=== PATIENT | female | born 1960 | race Caucasian/White ===

== ENCOUNTER 2018-03-17 12:36 | Inpatient (IN) | payer SELFPAY ==
[~2018-03-17] VITALS: Ht 165.1 cm; Wt 116.1 kg
[2018-03-17] VITALS (20 sets, daily range): BP systolic 81–127; BP diastolic 46–86
[~2018-03-17 12:36] MED LIST: ETOMIDATE 40 MG/ 20ML VIAL IV ONE; MIDAZOLAM HCL 2 MG/2 ML VIAL ONE; SUCCINYLCHOLINE CHLORIDE 20 MG/ML 10ML VIAL ONE; VECURONIUM BROMIDE FOR INJ 20 MG VIAL ONE; WATER STERILE 10 ML VIAL ONE
[2018-03-17] MEDS ORDERED: SODIUM CHLORIDE 0.9% 1000ML 1,000 ML IV STA (12:39)
[2018-03-17] MEDS ORDERED: ASPIRIN 81 MG CHEW TAB PO ONE (12:45)
[2018-03-17 12:48] LABS: BASOPHILS # (AUTO) 0.2 (0.0-0.1); EOSINOPHILS % 11.9 % (0.0-6.0); HEMATOCRIT 49.5 % (34.2-44.1); HEMOGLOBIN 15.9 g/dL (12.0-16.0); LYMPHOCYTES # (AUTO) 5.9 (1.0-3.2); LYMPHOCYTES % 35.7 % (18.0-39.1); MEAN CORPUSCULAR HEMOGLOBIN 29.8 pg (28-32); MEAN CORPUSCULAR HGB CONC 32.1 g/dL (31-35); MEAN CORPUSCULAR VOLUME 92.7 fL (81-99); MONOCYTES # (AUTO) 1.1 (0.2-0.8); MONOCYTES % 6.6 % (4.4-11.3); NEUTROPHILS # (AUTO) 7.4 (2.1-6.9); NEUTROPHILS % 44.4 % (38.7-80.0); PLATELET COUNT 438 x10e3/uL (140-360); RED BLOOD COUNT 5.34 x10e6/uL (3.6-5.1); RED CELL DISTRIBUTION WIDTH 13.4 % (11.7-14.4)
[2018-03-17 12:57] LABS: INR 1.11; PROTHROMBIN TIME 13.5 seconds (11.9-14.5)
[2018-03-17 12:58] LABS: PARTIAL THROMBOPLASTIN TIME 22.7 seconds (23.8-35.5)
[2018-03-17] MEDS ORDERED: LEVOTHYROXINE75 MCG PO (12:58)
[2018-03-17] MEDS ORDERED: BENZONATATE200 MG (12:58)
[2018-03-17] MEDS ORDERED: DOXYCYCLINE HY100 MG PO (12:58)
[2018-03-17 13:06] LABS: ABG HCO3 31 mmol/L (23-28); ABG PCO2 93 mmHg (41-51); ABG PH 7.13 (7.31-7.41); ABG PO2 368 mmHg (80-105)
[2018-03-17 13:07] LABS: EOSINOPHILS % (MANUAL) 10 % (0-7); LYMPHOCYTES % (MANUAL) 38 % (19-48); MONOCYTES % (MANUAL) 4 % (3.4-9.0); NEUTROPHILS % (MANUAL) 44 % (40-74)
[2018-03-17 13:08] LABS: ALBUMIN 4.6 g/dL (3.5-5.0); ALBUMIN/GLOBULIN RATIO 1.1 (0.8-2.0); ANION GAP 20.1 mmol/L (8-16); CALCIUM 10.1 mg/dL (8.4-10.2); CREATININE, SERUM 1.25 mg/dL (0.57-1.11); MAGNESIUM 2.6 MG/DL (1.3-2.1); PLATELET ESTIMATE ADEQUATE; PLATELET MORPHOLOGY COMMENT NORMAL; POTASSIUM 4.1 mmol/L (3.5-5.1); RBC MORPHOLOGY COMMENT NORMAL
[2018-03-17 13:14] LABS: BILIRUBIN,URINE NEGATIVE (NEGATIVE); CLARITY,URINE HAZY (CLEAR); COLOR,URINE YELLOW (YELLOW); KETONES,URINE NEGATIVE (NEGATIVE); LEUKOCYTE ESTERASE ,URINE NEGATIVE (NEGATIVE); NITRITE,URINE NEGATIVE (NEGATIVE); PROTEIN,URINE DIPSTICK NEGATIVE (NEGATIVE); URINE UROBILINOGEN 0.2 mg/dL (0.2 - 1)
[2018-03-17 13:15] LABS: BACTERIA,URINE FEW /HPF; EPITHELIAL CELLS,URINE FEW /LPF; WBC,URINE (MAN) 0-5 /HPF (0-5)
[2018-03-17] MEDS: MIDAZOLAM HCL 25 MG in SODIUM CHLORIDE 0.9% 50ML 45 ML IV PRN ×2 (13:20→18:00)
[2018-03-17] MEDS: FENTANYL CITRATE INJ 2,000 MCG in SODIUM CHLORIDE 0.9% 250ML 210 ML IV PRN ×3 (13:25→23:59)
[2018-03-17] MEDS ORDERED: SODIUM CHLORIDE 0.9% 1000ML 1,000 ML ONE (13:26)
[2018-03-17 13:27] LABS: CREATINE KINASE MB 3.7 ng/mL (0-5.0); THYROID STIMULATING HORMONE 0.83 uIU/mL (0.350-4.940)
[2018-03-17] MEDS ORDERED: VANCOMYCIN 1GM/NS 250 ML 500 ML IV ONE (13:30)
--- NOTE | 2018-03-17 13:46 | Diagnostic Imaging Report ---
EXAMINATION: CHEST SINGLE (PORTABLE) INDICATION: \S\ERMD ORDER \[id number] \S\[id number] \S\Y COMPARISON: None FINDINGS: AP view Motion artifact partly limit evaluation. TUBES and LINES: Endotracheal tube tip projects approximately 2.8 cm above the pita. NG/OG tube tip extends below the diaphragm out of the field of view. LUNGS: Lungs are well inflated. Lungs are clear. There is no evidence of pneumonia or pulmonary edema. PLEURA: No pleural effusion or pneumothorax. HEART AND MEDIASTINUM: The cardiomediastinal silhouette is unremarkable. BONES AND SOFT TISSUES: No acute osseous lesion. Soft tissues are unremarkable. UPPER ABDOMEN: No free air under the diaphragm. IMPRESSION: No acute thoracic abnormality. Signed by: DR. Rahul Patricia MD on 03/17/2018 1:43 PM
[2018-03-17] MEDS ORDERED: VANCOMYCIN HCL 1GM/NS 250 ML BAG IV SCH (14:00)
[2018-03-17] MEDS ORDERED: AZITHROMYCIN 500MG/SOD CHL 0.9% 250ML BAG IV SCH (14:00)
[2018-03-17] MEDS: SODIUM CHLORIDE 0.9% 1000ML 1,000 ML IV SCH ×2 (14:30→21:40)
[2018-03-17] MEDS: AZITHROMYCIN 500MG/NS 250 ML 250 ML IV SCH (14:35)
[2018-03-17] MEDS: CEFEPIME HCL 1 GM VIAL IV SCH (14:40)
[2018-03-17] MEDS ORDERED: MELOXICAM15 MG (15:04)
[2018-03-17] MEDS ORDERED: GABAPENTIN300 MG (15:04)
[2018-03-17] MEDS ORDERED: SIMVASTATIN20 MG (15:04)
[2018-03-17] MEDS ORDERED: AMITRIPTYLINE H25 MG PO ×2 (15:04→15:06)
[2018-03-17] MEDS ORDERED: HYDROXYZINE HCL25 MG PO (15:06)
[2018-03-17] MEDS ORDERED: VANCOMYCIN 1GM/NS 250 ML 250 ML IV SCH (15:30)
[2018-03-17] MEDS ORDERED: ALBUTEROL/IPRATROPIUM 3 ML NEB ONE (16:00)
[2018-03-17] MEDS ORDERED: ALBUTEROL/IPRATROPIUM 3 ML NEB NEB ONE (16:00)
[2018-03-17] MEDS ORDERED: PROPOFOL IV EMULSION 10MG/ML 100 ML ONE (16:16)
[2018-03-17] MEDS ORDERED: HEPARIN SOD (PORCINE) 5,000 UNIT/ML VIAL ONE (16:22)
[2018-03-17] MEDS ORDERED: HEPARIN 25,000U/0.45% NS 250ML 1,400 UNIT in SODIUM CHLORIDE 0.9% 250ML 0 ML IV SCH (16:30)
[2018-03-17] MEDS ORDERED: ROCURONIUM BROMIDE 2 ML ONE (16:36)
[2018-03-17] MEDS: LEVOFLOXACIN 750MG/D5W 150ML 150 ML IV SCH (17:00)
[2018-03-17] MEDS ORDERED: DEXAMETHASONE SOD PHOS 10 MG/1 ML VIAL ONE (17:05)
--- NOTE | 2018-03-17 17:20 | Diagnostic Imaging Report ---
EXAMINATION: CHEST SINGLE (PORTABLE) INDICATION: \[id number] \S\[id number] COMPARISON: 03/17/2018 at 1301 FINDINGS: AP view TUBES and LINES: None. LUNGS: Lungs are well inflated. Lungs are clear. There is no evidence of pneumonia or pulmonary edema. PLEURA: No pleural effusion or pneumothorax. HEART AND MEDIASTINUM: The cardiomediastinal silhouette is unremarkable. BONES AND SOFT TISSUES: No acute osseous lesion. Soft tissues are unremarkable. UPPER ABDOMEN: No free air under the diaphragm. IMPRESSION: No acute thoracic abnormality. Signed by: DR. Rahul Patricia MD on 03/17/2018 5:17 PM
[2018-03-17] MEDS ORDERED: SUCCINYLCHOLINE CHLORIDE 20 MG/ML 10ML VIAL ONE (17:26)
[2018-03-17] MEDS ORDERED: ETOMIDATE 2 MG/ML 10 ML INJ IV STA (18:24)
[2018-03-17] MEDS: PROPOFOL IV EMULSION 10MG/ML 100 ML IV PRN (18:30)
[2018-03-17] MEDS ORDERED: CISATRACURIUM BESYLATE 100 MG in SODIUM CHLORIDE 0.9% 100 ML 100 ML IV PRN (18:45)
[2018-03-17 18:59] LABS: ABG HCO3 29 mmol/L (23-28); ABG PCO2 129 mmHg (41-51); ABG PH 6.95 (7.31-7.41); ABG PO2 166 mmHg (80-105)
[2018-03-17] MEDS ORDERED: ALBUTEROL SULF 0.083% NEB SOLN 3 ML NEB NEB ONE ×2 (19:00→20:00)
[2018-03-17 19:17] LABS: ABG PH 7.14 (7.31-7.41)
[2018-03-17 19:18] LABS: ABG HCO3 27 mmol/L (23-28); ABG PCO2 80 mmHg (41-51); ABG PO2 366 mmHg (80-105)
[2018-03-17] MEDS ORDERED: SUCCINYLCHOLINE 200 MG/10 ML SYR IV ONE (19:30)
[2018-03-17] MEDS ORDERED: MIDAZOLAM HCL 2 MG/2 ML VIAL IV ONE (19:30)
--- NOTE | 2018-03-17 19:33 | Operative Report ---
DATE OF PROCEDURE: PREPROCEDURE DIAGNOSIS: Acute hypoxic respiratory failure. POSTOPERATIVE DIAGNOSIS: Acute hypoxic respiratory failure. PROCEDURE PERFORMED: Endotracheal intubation. ANESTHESIA: Patient received paralytics and Versed. PROCEDURE DETAIL: Glidoscope was advanced through the oral cavity. Patient was intubated with 7.0-tube on first attempt. Color change was seen with end tidal CO2 and position was confirmed with chest x-ray. COMPLICATIONS: None. Job#: [id number] [id number] MTDD
--- NOTE | 2018-03-17 19:38 | Operative Report ---
DATE OF PROCEDURE: PREPROCEDURE DIAGNOSIS: Hypotension. POSTPROCEDURE DIAGNOSIS: Hypotension. PROCEDURE PERFORMED: Central line insertion. PROCEDURE DETAIL: After standard sterile measures, realtime ultrasound was used to locate the left internal jugular vein. Left internal jugular vein central line was placed with Seldinger technique. Good blood flow was seen in all 3 ports. Postprocedure chest x-ray is pending. Job#: [id number] CQ
--- NOTE | 2018-03-17 19:39 | Diagnostic Imaging Report ---
EXAMINATION: CHEST XRAY LINE PLACEMENT INDICATION: \S\l ij \[id number] \S\[id number] COMPARISON: Chest radiograph 03/17/2018 at 1648 hrs. FINDINGS: AP view TUBES and LINES: Endotracheal tube tip in the right mainstem bronchus. Left IJ central venous catheter with tip projecting over the mid SVC. LUNGS: Right upper lobe atelectasis. Lungs otherwise clear. PLEURA: No pleural effusion or pneumothorax. HEART AND MEDIASTINUM: The cardiomediastinal silhouette is unremarkable. BONES AND SOFT TISSUES: No acute osseous lesion. Soft tissues are unremarkable. UPPER ABDOMEN: No free air under the diaphragm. IMPRESSION: ET tube tip in the right mainstem bronchus with right upper lobe collapse. Findings discussed with Ms. Georgia Gan RN on 03/17/2018 at 1930 hrs. Signed by: DR. Rahul Patricia MD on 03/17/2018 7:35 PM
--- NOTE | 2018-03-17 19:43 | Operative Report ---
DATE OF PROCEDURE: PREPROCEDURE DIAGNOSES 1. Difficult airway. 2. Hypoxia. POSTOPERATIVE DIAGNOSES 1. Difficult airway. 2. Hypoxia. PROCEDURE PERFORMED: Bronchoscopy with eye piece scope DETAILS OF PROCEDURE: Patient was sedated, paralyzed. Bronchoscope with eyepiece was advanced through the ET tube. Pita was identified. I was unable to advance the scope to segmental level. Patient's tube placement was confirmed. Pita was identified. Thick green mucus was seen coming from the right side. unable to comment on segmental anatomy and presence of mass- as was unable to advance the scope beyond pita because of poor suction and visualization with eyepiece fibre optic scope. COMPLICATIONS: None. Job#: [id number] [id number] MTDValarie
--- NOTE | 2018-03-17 20:39 | Diagnostic Imaging Report ---
EXAM: CT Chest WITH contrast 03/17/2018 4:29 PM INDICATION: Pulmonary embolism, respiratory failure COMPARISON: Chest x-ray on 03/17/2018 at 1853 hours and 1301 hours TECHNIQUE: Chest was scanned utilizing a multidetector helical scanner from the lung apex through the level of the adrenal glands without administration of IV contrast. Coronal and sagittal reformations were obtained. Routine protocol was performed. IV CONTRAST: 85 mL of Isovue 370 RADIATION DOSE: Total DLP: 638.9 mGy*cm Estimated effective dose: (DLP x 0.014 x size factor) mSv COMPLICATIONS: None FINDINGS: LINES/ TUBES: Endotracheal tube is now visualized with tip just 1 cm above the pita. Has been retracted from the right mainstem bronchus. LUNGS AND AIRWAYS: Persistent collapse of the right upper and right middle lobes. Airways are otherwise normal. PLEURA: The pleural spaces are clear. HEART AND MEDIASTINUM: The thyroid gland is normal. No mediastinal, hilar or axillary lymphadenopathy. The heart is normal in size.. There is no pericardial effusion. UPPER ABDOMEN: Limited non-contrast views of the upper abdomen show no abnormality within the visualized liver, spleen, pancreas, or kidneys. The adrenal glands are normal. BONES: The visualized bony thorax is within normal limits. SOFT TISSUES: Unremarkable. IMPRESSION: 1. No evidence of pulmonary embolism. 2. Collapse of the right upper and right middle lobes. 3. Repositioning of endotracheal tube now in better location 1 cm above the pita Signed by: Dr. Magdi Simpson M.D. on 03/17/2018 8:36 PM
--- NOTE | 2018-03-17 21:15 | Consultation ---
DATE OF CONSULTATION: PULMONARY/CRITICAL CARE CONSULTATION REASON FOR CONSULTATION: Shortness of breath, respiratory failure, ICU management. HPI: Ms. Bergman is a 57-year-old female. I was called by the emergency room physician that patient has a difficult airway and unable to ventilate. She is saturating 60%. I am unable to take any history from the patient as she is intubated, sedated, and paralyzed. ER chart says the patient is unable to give any history. There is unknown history of smoking. REVIEW OF SYSTEMS: Unable to elicit any as patient is sedated, intubated, paralyzed, and there is no other admissions here at [facility]. PAST MEDICAL HISTORY: Unknown. MEDICATIONS: She is on levothyroxine, meloxicam, simvastatin, doxycycline. FAMILY AND SOCIAL HISTORY: Also is unknown. PHYSICAL EXAM VITAL SIGNS: Temperature 98.4. Blood pressure 100/63. Respiratory rate of 18. O2 sat 100% right now. She is on FiO2 of 100%, PEEP of 10, tidal volume of 400, and she is on AC. She has been a difficult airway. I intubated her with 7-tube with GlideScope. HEENT: Head atraumatic, normocephalic. NECK: Supple. CHEST: Wheezing and crackles bilaterally. HEART: S1, S2 audible. ABDOMEN: Soft, nontender. EXTREMITIES: No pedal edema. NEUROLOGIC: She is sedated, intubated, paralyzed right now. LABS: White count of 16,000, hemoglobin 15.9, platelets 438,000. Chemistry, sodium 142, potassium 4.1, chloride 102, BUN 12, creatinine 1.25. CHEST X-RAY: I reviewed the images. It is not showing any focal infiltrate. ET tube appears to be in good position. ASSESSMENT AND PLAN: Ms. Bergman is a 57-year-old female. She presented with [id number] hypercapnic and hypoxic respiratory failure. Her blood gas shows pCO2 of 7.93 and pH of 7.13. CURRENT PROBLEMS 1. Acute hypoxic and hypercapnic respiratory failure. 2. Difficult airway. 3. RUL pneumonia/collapse PLAN 1. Continue the patient on vent support. Keep the patient sedated. If the ventilation has an issue, we need to paralyze the patient. 2. Nebulizer treatment. 3. IV Solu-Medrol. Patient has been started on heparin by the ER physician for possibility of PE. CTA is pending. Will follow the results. 4. IV antibiotics Job#: [id number] CQ MTDD
[2018-03-17] MEDS: VANCOMYCIN 1GM/NS 250 ML 250 ML IV SCH (21:40)
[2018-03-17] MEDS: METHYLPREDNISOLONE SOD SUCC 40 MG/ML VIAL IV SCH (21:40)
[2018-03-17] MEDS: ALBUTEROL SULF 0.083% NEB SOLN 3 ML NEB NEB SCH (22:41)
[2018-03-17] MEDS: PIPER-TAZ 3.375 GM 50 ML IV SCH (23:48)
[2018-03-17] MEDS ORDERED: IOPAMIDOL 370 MG/ML 200 ML INFUS..BTL INJ ONE (23:49)
[2018-03-17] MEDS ORDERED: SODIUM CHLORIDE 0.9% 50ML 50 ML ONE (23:49)
[2018-03-18] VITALS (62 sets, daily range): BP systolic 78–150; BP diastolic 48–103
[2018-03-18] MEDS: LEVOFLOXACIN 750MG/D5W 150ML 150 ML IV SCH (00:20)
[2018-03-18] MEDS: CEFEPIME HCL 1 GM VIAL IV SCH (00:45)
[2018-03-18] MEDS: ALBUTEROL SULF 0.083% NEB SOLN 3 ML NEB NEB SCH ×6 (02:19→23:10)
[2018-03-18] MEDS: METHYLPREDNISOLONE SOD SUCC 40 MG/ML VIAL IV SCH ×3 (03:28→20:03)
[2018-03-18 04:12] LABS: ABG HCO3 25 mmol/L (23-28); ABG PCO2 44 mmHg (41-51); ABG PH 7.36 (7.31-7.41); ABG PO2 212 mmHg (80-105)
[2018-03-18 05:00] LABS: ANION GAP 13.3 mmol/L (8-16); BLOOD UREA NITROGEN 13 mg/dL (7-26); BUN/CREATININE RATIO 15 (6-25); CALCIUM 8.6 mg/dL (8.4-10.2); CARBON DIOXIDE 22 mmol/L (22-29); CHLORIDE 112 mmol/L (98-107); CREATININE, SERUM 0.85 mg/dL (0.57-1.11); EST GLOMERULAR FILTRATION RATE > 60 ML/MIN (60-); GLUCOSE 128 mg/dL (74-118); POTASSIUM 4.3 mmol/L (3.5-5.1); SODIUM 143 mmol/L (136-145)
[2018-03-18] MEDS: PIPER-TAZ 3.375 GM 50 ML IV SCH ×3 (05:47→22:30)
[2018-03-18] MEDS: SODIUM CHLORIDE 0.9% 1000ML 1,000 ML IV SCH ×2 (05:47→14:59)
[2018-03-18 06:36] LABS: BASOPHILS % 0.1 % (0.0-1.0); HEMATOCRIT 36.6 % (34.2-44.1); HEMOGLOBIN 11.9 g/dL (12.0-16.0); LYMPHOCYTES # (AUTO) 0.9 (1.0-3.2); LYMPHOCYTES % 8.4 % (18.0-39.1); MEAN CORPUSCULAR HEMOGLOBIN 30.2 pg (28-32); MEAN CORPUSCULAR HGB CONC 32.5 g/dL (31-35); MEAN CORPUSCULAR VOLUME 92.9 fL (81-99); MONOCYTES # (AUTO) 0.4 (0.2-0.8); MONOCYTES % 4.1 % (4.4-11.3); NEUTROPHILS # (AUTO) 8.9 (2.1-6.9); PLATELET COUNT 263 x10e3/uL (140-360); RED BLOOD COUNT 3.94 x10e6/uL (3.6-5.1)
[2018-03-18] MEDS ORDERED: LEVOFLOXACIN 750MG/DEXTROSE PREMIX BAG 150ML IV SCH (09:00)
[2018-03-18] MEDS: VANCOMYCIN 1GM/NS 250 ML 250 ML IV SCH ×2 (09:42→20:03)
--- NOTE | 2018-03-18 10:35 | Diagnostic Imaging Report ---
EXAM: XR CHEST 1 VIEW DATE: 03/18/2018 5:00 AM INDICATION: Pneumonia COMPARISON: 03/17/2018 FINDINGS: Lines and Tubes: ET tube tip above pita. Left IJ catheter tip likely overlying left brachycephalic artery. Heart and Mediastinum: No acute cardiomediastinal findings. Lungs and Pleura: Elevation right hemidiaphragm and minimal opacities lung bases. Ill-defined opacity right apex. Bones and Soft Tissues: No acute findings. IMPRESSION: 1. Lines and tubes satisfactory position. 2. Minimal basilar atelectasis versus pneumonia. 3. Ill-defined opacity right apex may be projectional/artifactual. Follow-up recommended. Signed by: Dr. Donavan Cruz MD on 03/18/2018 10:31 AM
[2018-03-18] MEDS: MIDAZOLAM HCL 25 MG in SODIUM CHLORIDE 0.9% 50ML 45 ML IV PRN (12:00)
[2018-03-18 14:55] LABS: ABG HCO3 37 mmol/L (23-28); ABG PCO2 54 mmHg (41-51); ABG PO2 58 mmHg (80-105)
[2018-03-18] MEDS: AZITHROMYCIN 500MG/NS 250 ML 250 ML IV SCH (14:59)
[2018-03-18] MEDS: ENOXAPARIN SOD INJ 40 MG/0.4 ML SYR SC SCH (19:17)
[2018-03-19] VITALS (81 sets, daily range): BP systolic 89–147; BP diastolic 51–129
[2018-03-19] MEDS: MIDAZOLAM HCL 25 MG in SODIUM CHLORIDE 0.9% 50ML 45 ML IV PRN ×4 (01:04→20:00)
[2018-03-19] MEDS: METHYLPREDNISOLONE SOD SUCC 40 MG/ML VIAL IV SCH ×3 (02:57→18:46)
[2018-03-19] MEDS: FENTANYL CITRATE INJ 2,000 MCG in SODIUM CHLORIDE 0.9% 250ML 210 ML IV PRN ×2 (02:57→16:50)
[2018-03-19] MEDS: ALBUTEROL SULF 0.083% NEB SOLN 3 ML NEB NEB SCH ×6 (03:01→22:55)
[2018-03-19 04:36] LABS: BASOPHILS % 0.1 % (0.0-1.0); HEMOGLOBIN 11.2 g/dL (12.0-16.0); LYMPHOCYTES # (AUTO) 1.1 (1.0-3.2); LYMPHOCYTES % 7.6 % (18.0-39.1); MEAN CORPUSCULAR HEMOGLOBIN 30.3 pg (28-32); MEAN CORPUSCULAR HGB CONC 32.9 g/dL (31-35); MEAN CORPUSCULAR VOLUME 91.9 fL (81-99); MONOCYTES # (AUTO) 0.7 (0.2-0.8); MONOCYTES % 4.7 % (4.4-11.3); NEUTROPHILS % 86.6 % (38.7-80.0); PLATELET COUNT 200 x10e3/uL (140-360); RED CELL DISTRIBUTION WIDTH 14.2 % (11.7-14.4)
[2018-03-19] MEDS: PROPOFOL IV EMULSION 10MG/ML 100 ML IV PRN ×2 (04:40→19:20)
[2018-03-19] MEDS: SODIUM CHLORIDE 0.9% 1000ML 1,000 ML IV SCH (04:42)
[2018-03-19 04:59] LABS: ALANINE AMINOTRANSFERASE 22 IU/L (0-55); ALBUMIN 2.9 g/dL (3.5-5.0); ALKALINE PHOSPHATASE 58 IU/L (40-150); ANION GAP 9.7 mmol/L (8-16); BLOOD UREA NITROGEN 19 mg/dL (7-26); BUN/CREATININE RATIO 24 (6-25); CALCIUM 8.7 mg/dL (8.4-10.2); CARBON DIOXIDE 25 mmol/L (22-29); CHLORIDE 110 mmol/L (98-107); CREATININE, SERUM 0.78 mg/dL (0.57-1.11); EST GLOMERULAR FILTRATION RATE > 60 ML/MIN (60-); GLUCOSE 154 mg/dL (74-118); POTASSIUM 3.7 mmol/L (3.5-5.1); SODIUM 141 mmol/L (136-145)
[2018-03-19 05:20] LABS: THYROID STIMULATING HORMONE 0.163 uIU/mL (0.350-4.940)
[2018-03-19] MEDS: PIPER-TAZ 3.375 GM 50 ML IV SCH ×2 (05:51→15:23)
[2018-03-19] MEDS: VANCOMYCIN 1GM/NS 250 ML 250 ML IV SCH (10:31)
[2018-03-19] MEDS ORDERED: VANCOMYCIN 1GM/NS 250 ML 250 ML IV ONE (13:30)
[2018-03-19 14:50] LABS: ABG HCO3 26 mmol/L (23-28); ABG PCO2 39 mmHg (41-51); ABG PH 7.44 (7.31-7.41); ABG PO2 62 mmHg (80-105)
[2018-03-19] MEDS: AZITHROMYCIN 500MG/NS 250 ML 250 ML IV SCH (16:09)
[2018-03-19] MEDS: ENOXAPARIN SOD INJ 40 MG/0.4 ML SYR SC SCH (18:46)
[2018-03-19] MEDS ORDERED: VANCOMYCIN HCL 1.25 GM in SODIUM CHLORIDE 0.9% 250ML 300 ML IV SCH (21:00)
[2018-03-19] MEDS: VANCOMYCIN HCL 1.25 GM in SODIUM CHLORIDE 0.9% 250ML 250 ML IV SCH (23:00)
[2018-03-20] VITALS (77 sets, daily range): BP systolic 112–140; BP diastolic 70–94
[2018-03-20] MEDS: MIDAZOLAM HCL 25 MG in SODIUM CHLORIDE 0.9% 50ML 45 ML IV PRN ×7 (00:50→21:00)
[2018-03-20] MEDS: FENTANYL CITRATE INJ 2,000 MCG in SODIUM CHLORIDE 0.9% 250ML 210 ML IV PRN ×3 (03:00→22:45)
[2018-03-20] MEDS ORDERED: SODIUM CHLORIDE 0.9% 500ML 500 ML ONE (03:09)
[2018-03-20] MEDS: ALBUTEROL SULF 0.083% NEB SOLN 3 ML NEB NEB SCH ×6 (03:15→22:50)
[2018-03-20] MEDS: METHYLPREDNISOLONE SOD SUCC 40 MG/ML VIAL IV SCH ×3 (04:00→23:00)
[2018-03-20] MEDS: PIPER-TAZ 3.375 GM 50 ML IV SCH ×4 (05:30→23:25)
[2018-03-20 05:31] LABS: BASOPHILS % 0.1 % (0.0-1.0); HEMATOCRIT 35.4 % (34.2-44.1); HEMOGLOBIN 11.6 g/dL (12.0-16.0); LYMPHOCYTES # (AUTO) 1.4 (1.0-3.2); LYMPHOCYTES % 10.8 % (18.0-39.1); MEAN CORPUSCULAR HEMOGLOBIN 29.7 pg (28-32); MEAN CORPUSCULAR HGB CONC 32.8 g/dL (31-35); MEAN CORPUSCULAR VOLUME 90.8 fL (81-99); MONOCYTES # (AUTO) 0.6 (0.2-0.8); MONOCYTES % 4.5 % (4.4-11.3); NEUTROPHILS % 83.4 % (38.7-80.0); PLATELET COUNT 236 x10e3/uL (140-360); RED CELL DISTRIBUTION WIDTH 14.1 % (11.7-14.4)
[2018-03-20 05:40] LABS: ANION GAP 10.7 mmol/L (8-16); BLOOD UREA NITROGEN 23 mg/dL (7-26); BUN/CREATININE RATIO 33 (6-25); CALCIUM 8.5 mg/dL (8.4-10.2); CARBON DIOXIDE 26 mmol/L (22-29); CHLORIDE 110 mmol/L (98-107); CREATININE, SERUM 0.69 mg/dL (0.57-1.11); EST GLOMERULAR FILTRATION RATE > 60 ML/MIN (60-); GLUCOSE 154 mg/dL (74-118); POTASSIUM 3.7 mmol/L (3.5-5.1); SODIUM 143 mmol/L (136-145)
[2018-03-20] MEDS: PROPOFOL IV EMULSION 10MG/ML 100 ML IV PRN (06:00)
--- NOTE | 2018-03-20 06:22 | Diagnostic Imaging Report ---
CHEST SINGLE (PORTABLE), 03/20/2018 6:00 AM Technique: CHEST SINGLE (PORTABLE) Comparison: 03/18/2018 Clinical history: Intubated Findings: See Impression Impression: 1. Lines/Tubes: ET tube about 5.5 cm above the pita. NG tube extends subdiaphragmatically. Left IJ CVC at least to the cavoatrial junction, tip poorly seen. 2. Stable cardiac silhouette. 3. Fluctuating patchy bilateral opacities, most notable in the bibasilar and left perihilar region and improved in the right upper lobe. Findings may related to recurrent aspiration Signed by: Dr Jackie Villegas MD on 03/20/2018 6:18 AM
[2018-03-20] MEDS ORDERED: FUROSEMIDE INJ 10 MG/ML 4 ML VIAL IV ONE (09:45)
[2018-03-20 10:04] LABS: ABG PCO2 39 mmHg (41-51); ABG PH 7.45 (7.31-7.41); ABG PO2 61 mmHg (80-105)
[2018-03-20 10:05] LABS: ABG HCO3 27 mmol/L (23-28)
[2018-03-20] MEDS: VANCOMYCIN HCL 1.25 GM in SODIUM CHLORIDE 0.9% 250ML 250 ML IV SCH ×2 (10:46→23:00)
[2018-03-20] MEDS: IPRATROPIUM BROMIDE 0.02% 2.5 ML NEB NEB SCH ×2 (15:30→19:15)
[2018-03-20] MEDS: AZITHROMYCIN 500MG/NS 250 ML 250 ML IV SCH (15:45)
[2018-03-20] MEDS: ENOXAPARIN SOD INJ 40 MG/0.4 ML SYR SC SCH (17:50)
[2018-03-20] MEDS: BUDESONIDE 0.5MG/2 ML NEB INH SCH (19:15)
[2018-03-21] VITALS (75 sets, daily range): BP systolic 114–153; BP diastolic 63–130
[2018-03-21] MEDS: IPRATROPIUM BROMIDE 0.02% 2.5 ML NEB NEB SCH ×4 (00:20→19:00)
[2018-03-21] MEDS: ALBUTEROL SULF 0.083% NEB SOLN 3 ML NEB NEB SCH ×5 (03:20→19:00)
[2018-03-21] MEDS: METHYLPREDNISOLONE SOD SUCC 40 MG/ML VIAL IV SCH ×4 (04:30→21:00)
[2018-03-21 05:17] LABS: BASOPHILS % 0.2 % (0.0-1.0); EOSINOPHILS % 0.1 % (0.0-6.0); HEMATOCRIT 37.4 % (34.2-44.1); HEMOGLOBIN 12.6 g/dL (12.0-16.0); LYMPHOCYTES # (AUTO) 1.7 (1.0-3.2); LYMPHOCYTES % 14.6 % (18.0-39.1); MEAN CORPUSCULAR HEMOGLOBIN 30.1 pg (28-32); MEAN CORPUSCULAR HGB CONC 33.7 g/dL (31-35); MEAN CORPUSCULAR VOLUME 89.5 fL (81-99); MONOCYTES # (AUTO) 0.5 (0.2-0.8); MONOCYTES % 3.8 % (4.4-11.3); NEUTROPHILS # (AUTO) 9.4 (2.1-6.9); NEUTROPHILS % 79.2 % (38.7-80.0); PLATELET COUNT 235 x10e3/uL (140-360); RED BLOOD COUNT 4.18 x10e6/uL (3.6-5.1)
[2018-03-21 05:44] LABS: ANION GAP 14.8 mmol/L (8-16); BLOOD UREA NITROGEN 29 mg/dL (7-26); BUN/CREATININE RATIO 39 (6-25); CALCIUM 8.5 mg/dL (8.4-10.2); CARBON DIOXIDE 26 mmol/L (22-29); CHLORIDE 105 mmol/L (98-107); CREATININE, SERUM 0.74 mg/dL (0.57-1.11); EST GLOMERULAR FILTRATION RATE > 60 ML/MIN (60-); GLUCOSE 175 mg/dL (74-118); MAGNESIUM 1.9 MG/DL (1.3-2.1); POTASSIUM 3.8 mmol/L (3.5-5.1); SODIUM 142 mmol/L (136-145)
[2018-03-21] MEDS: PIPER-TAZ 3.375 GM 50 ML IV SCH ×3 (05:58→22:24)
--- NOTE | 2018-03-21 06:06 | Diagnostic Imaging Report ---
CHEST SINGLE (PORTABLE), 03/21/2018 5:14 AM Technique: CHEST SINGLE (PORTABLE) Comparison: Previous day Clinical history: Intubation Findings: See Impression Impression: 1. Lines/Tubes: ET tube 4.5 cm above the pita. NG tube extends subdiaphragmatically. Left IJ CVC at least to the cavoatrial junction, tip poorly seen. 2. Stable cardiac silhouette. 3. Patchy bibasilar opacities which may be related to aspiration Signed by: Dr Jackie Villegas MD on 03/21/2018 6:02 AM
[2018-03-21] MEDS: BUDESONIDE 0.5MG/2 ML NEB INH SCH ×2 (06:15→19:15)
[2018-03-21 08:24] LABS: LYMPHOCYTES % (MANUAL) 14 % (19-48); NEUTROPHILS % (MANUAL) 86 % (40-74)
[2018-03-21 08:25] LABS: ANISOCYTOSIS SLIGHT; HYPOCHROMASIA SLIGHT; PLATELET ESTIMATE ADEQUATE; PLATELET MORPHOLOGY COMMENT NORMAL; RBC MORPHOLOGY COMMENT NORMAL
[2018-03-21] MEDS ORDERED: FAMOTIDINE 20 MG/2 ML VIAL IV SCH ×3 (09:00→21:00)
[2018-03-21] MEDS ORDERED: DEXMEDETOMIDINE HCL 200 MCG in SODIUM CHLORIDE 0.9% 50ML 48 ML IV PRN (09:15)
[2018-03-21] MEDS: LEVOTHYROXINE SODIUM 75 MCG TAB PO SCH (09:17)
[2018-03-21] MEDS: FAMOTIDINE 20 MG/2 ML VIAL IV SCH ×2 (09:32→20:54)
[2018-03-21] MEDS: DEXMEDETOMIDINE HCL 200 MCG in SODIUM CHLORIDE 0.9% 50ML 48 ML IV PRN ×2 (10:00→18:39)
[2018-03-21] MEDS: VANCOMYCIN HCL 1.25 GM in SODIUM CHLORIDE 0.9% 250ML 250 ML IV SCH ×2 (10:19→21:00)
[2018-03-21] MEDS: AZITHROMYCIN 500MG/NS 250 ML 250 ML IV SCH (15:00)
[2018-03-21] MEDS: FENTANYL CITRATE INJ 2,000 MCG in SODIUM CHLORIDE 0.9% 250ML 210 ML IV PRN (15:15)
[2018-03-21] MEDS: ENOXAPARIN SOD INJ 40 MG/0.4 ML SYR SC SCH (18:43)
[2018-03-21] MEDS ORDERED: SODIUM CHLORIDE 0.9% 250ML 250 ML ONE (20:56)
[2018-03-21] MEDS ORDERED: LABETALOL HCL 5 MG/ML 20ML VIAL IV PRN (22:30)
[2018-03-22] VITALS (24 sets, daily range): BP systolic 98–185; BP diastolic 76–103
[2018-03-22] MEDS: METHYLPREDNISOLONE SOD SUCC 40 MG/ML VIAL IV SCH ×3 (02:46→22:51)
[2018-03-22] MEDS: ALBUTEROL SULF 0.083% NEB SOLN 3 ML NEB NEB SCH ×6 (03:00→19:15)
[2018-03-22] MEDS: DEXMEDETOMIDINE HCL 200 MCG in SODIUM CHLORIDE 0.9% 50ML 48 ML IV PRN (03:06)
[2018-03-22] MEDS: FENTANYL CITRATE INJ 2,000 MCG in SODIUM CHLORIDE 0.9% 250ML 210 ML IV PRN (03:07)
[2018-03-22 04:46] LABS: BASOPHILS # (AUTO) 0.1 (0.0-0.1); BASOPHILS % 0.4 % (0.0-1.0); HEMATOCRIT 40.6 % (34.2-44.1); HEMOGLOBIN 13.4 g/dL (12.0-16.0); LYMPHOCYTES # (AUTO) 1.7 (1.0-3.2); LYMPHOCYTES % 12.5 % (18.0-39.1); MEAN CORPUSCULAR HEMOGLOBIN 29.8 pg (28-32); MEAN CORPUSCULAR VOLUME 90.2 fL (81-99); MONOCYTES # (AUTO) 0.8 (0.2-0.8); MONOCYTES % 5.5 % (4.4-11.3); NEUTROPHILS % 79.1 % (38.7-80.0); PLATELET COUNT 271 x10e3/uL (140-360); RED CELL DISTRIBUTION WIDTH 13.5 % (11.7-14.4)
[2018-03-22 05:16] LABS: ALANINE AMINOTRANSFERASE 102 IU/L (0-55); ALBUMIN/GLOBULIN RATIO 0.9 (0.8-2.0); ALKALINE PHOSPHATASE 67 IU/L (40-150); ANION GAP 13.2 mmol/L (8-16); BLOOD UREA NITROGEN 31 mg/dL (7-26); BUN/CREATININE RATIO 41 (6-25); CALCIUM 8.8 mg/dL (8.4-10.2); CARBON DIOXIDE 28 mmol/L (22-29); CHLORIDE 104 mmol/L (98-107); CREATININE, SERUM 0.75 mg/dL (0.57-1.11); EST GLOMERULAR FILTRATION RATE > 60 ML/MIN (60-); GLUCOSE 172 mg/dL (74-118); POTASSIUM 4.2 mmol/L (3.5-5.1); SODIUM 141 mmol/L (136-145)
[2018-03-22 05:26] LABS: ABG HCO3 32 mmol/L (23-28); ABG PCO2 55 mmHg (41-51); ABG PH 7.38 (7.31-7.41); ABG PO2 174 mmHg (80-105)
[2018-03-22] MEDS: PIPER-TAZ 3.375 GM 50 ML IV SCH ×3 (05:46→22:51)
[2018-03-22] MEDS: LEVOTHYROXINE SODIUM 75 MCG TAB PO SCH (05:46)
--- NOTE | 2018-03-22 06:08 | Diagnostic Imaging Report ---
CHEST SINGLE (PORTABLE), 03/22/2018 5:00 AM Technique: CHEST SINGLE (PORTABLE) Comparison: Previous day Clinical history: Intubation Findings: See Impression Impression: 1. Lines/Tubes: ET tube about 6 cm above the pita. NG tube extends subdiaphragmatically. Left IJ CVC at least to the cavoatrial junction, tip poorly seen. 2. Stable cardiac silhouette. 3. Lower lung volumes with vascular crowding. Patchy bibasilar opacities which may be related to aspiration Signed by: Dr Jackie Villegas MD on 03/22/2018 6:04 AM
[2018-03-22] MEDS: BUDESONIDE 0.5MG/2 ML NEB INH SCH ×2 (06:25→19:15)
[2018-03-22] MEDS: IPRATROPIUM BROMIDE 0.02% 2.5 ML NEB NEB SCH ×4 (06:25→19:15)
[2018-03-22 07:39] LABS: EOSINOPHILS % (MANUAL) 1 % (0-7); LYMPHOCYTES % (MANUAL) 9 % (19-48); MONOCYTES % (MANUAL) 6 % (3.4-9.0); MYELOCYTES % (MANUAL) 1 % (0-0); NEUTROPHILS % (MANUAL) 82 % (40-74); PLATELET ESTIMATE ADEQUATE; PLATELET MORPHOLOGY COMMENT NORMAL; RBC MORPHOLOGY COMMENT NORMAL
[2018-03-22 07:40] LABS: ANISOCYTOSIS SLIGHT
[2018-03-22] MEDS: FAMOTIDINE 20 MG/2 ML VIAL IV SCH ×2 (08:21→22:51)
[2018-03-22] MEDS: VANCOMYCIN HCL 1.25 GM in SODIUM CHLORIDE 0.9% 250ML 250 ML IV SCH ×2 (08:23→22:52)
[2018-03-22 09:19] LABS: ABG PCO2 49 mmHg (41-51); ABG PH 7.42 (7.31-7.41); ABG PO2 136 mmHg (80-105)
[2018-03-22 09:20] LABS: ABG HCO3 33 mmol/L (23-28)
[2018-03-22] MEDS: AZITHROMYCIN 500MG/NS 250 ML 250 ML IV SCH (13:17)
[2018-03-22] MEDS: ENOXAPARIN SOD INJ 40 MG/0.4 ML SYR SC SCH (17:00)
[2018-03-22] MEDS: ONDANSETRON HCL INJ 2 MG/ML VIAL IV PRN (22:52)
[2018-03-22] MEDS: METRONIDAZOLE 500MG/NS 100ML 100 ML IV SCH (23:01)
[2018-03-23] VITALS (30 sets, daily range): BP systolic 112–160; BP diastolic 75–107
[2018-03-23] MEDS: METHYLPREDNISOLONE SOD SUCC 40 MG/ML VIAL IV SCH ×3 (02:31→21:32)
[2018-03-23] MEDS: LEVOTHYROXINE SODIUM 75 MCG TAB PO SCH (02:31)
[2018-03-23] MEDS: ALBUTEROL SULF 0.083% NEB SOLN 3 ML NEB NEB SCH ×7 (03:00→23:30)
[2018-03-23 04:57] LABS: BASOPHILS # (AUTO) 0.1 (0.0-0.1); BASOPHILS % 0.4 % (0.0-1.0); HEMATOCRIT 41.6 % (34.2-44.1); LYMPHOCYTES # (AUTO) 1.9 (1.0-3.2); LYMPHOCYTES % 13.9 % (18.0-39.1); MEAN CORPUSCULAR HEMOGLOBIN 29.9 pg (28-32); MEAN CORPUSCULAR HGB CONC 33.7 g/dL (31-35); MEAN CORPUSCULAR VOLUME 88.9 fL (81-99); MONOCYTES # (AUTO) 0.6 (0.2-0.8); MONOCYTES % 4.6 % (4.4-11.3); NEUTROPHILS # (AUTO) 10.4 (2.1-6.9); NEUTROPHILS % 77.6 % (38.7-80.0); PLATELET COUNT 240 x10e3/uL (140-360); RED BLOOD COUNT 4.68 x10e6/uL (3.6-5.1); RED CELL DISTRIBUTION WIDTH 13.1 % (11.7-14.4)
[2018-03-23 05:23] LABS: ANION GAP 14.1 mmol/L (8-16); BLOOD UREA NITROGEN 23 mg/dL (7-26); BUN/CREATININE RATIO 33 (6-25); CALCIUM 8.7 mg/dL (8.4-10.2); CARBON DIOXIDE 29 mmol/L (22-29); CHLORIDE 97 mmol/L (98-107); EST GLOMERULAR FILTRATION RATE > 60 ML/MIN (60-); GLUCOSE 142 mg/dL (74-118); POTASSIUM 4.1 mmol/L (3.5-5.1); SODIUM 136 mmol/L (136-145)
--- NOTE | 2018-03-23 05:28 | Diagnostic Imaging Report ---
CHEST SINGLE (PORTABLE), 03/23/2018 5:00 AM Technique: CHEST SINGLE (PORTABLE) Comparison: Previous day Clinical history: \S\S/P EXTUBATION, ASPIRATION PRECAUTIONS \[id number] \S\0440 \S\Y Findings: See Impression Impression: 1. Lines/Tubes: Removal of ET tube, NG tube. Stable left IJ CVC to the cavoatrial junction. 2. Stable cardiac silhouette. 3. Stable mild bibasilar vascular crowding/opacity. Signed by: Dr Jackie Villegas MD on 03/23/2018 5:25 AM
[2018-03-23] MEDS: PIPER-TAZ 3.375 GM 50 ML IV SCH ×3 (05:58→21:32)
[2018-03-23] MEDS: METRONIDAZOLE 500MG/NS 100ML 100 ML IV SCH ×4 (05:58→23:06)
[2018-03-23] MEDS: BUDESONIDE 0.5MG/2 ML NEB INH SCH ×2 (07:08→19:15)
[2018-03-23] MEDS: IPRATROPIUM BROMIDE 0.02% 2.5 ML NEB NEB SCH ×5 (07:08→23:30)
[2018-03-23] MEDS: VANCOMYCIN HCL 1.25 GM in SODIUM CHLORIDE 0.9% 250ML 250 ML IV SCH ×2 (08:28→21:32)
[2018-03-23] MEDS: FAMOTIDINE 20 MG/2 ML VIAL IV SCH (08:28)
[2018-03-23 08:47] LABS: ANISOCYTOSIS SLIGHT; LYMPHOCYTES % (MANUAL) 13 % (19-48); METAMYELOCYTES % (MANUAL) 1 % (0-0); MONOCYTES % (MANUAL) 4 % (3.4-9.0); NEUTROPHILS % (MANUAL) 82 % (40-74); PLATELET ESTIMATE ADEQUATE; POIKILOCYTOSIS SLIGHT; RBC MORPHOLOGY COMMENT NORMAL
[2018-03-23 08:48] LABS: HYPOCHROMASIA SLIG; PLATELET MORPHOLOGY COMMENT NORMAL
[2018-03-23] MEDS: ONDANSETRON HCL INJ 2 MG/ML VIAL IV PRN (14:22)
[2018-03-23] MEDS: AZITHROMYCIN 500MG/NS 250 ML 250 ML IV SCH (14:30)
[2018-03-23] MEDS: ENOXAPARIN SOD INJ 40 MG/0.4 ML SYR SC SCH (17:09)
[2018-03-23] MEDS ORDERED: MAGNESIUM HYDROXIDE 30 ML UDC PO ONE (19:00)
--- NOTE | 2018-03-23 19:09 | Diagnostic Imaging Report ---
Exam: Head CT without contrast History: Bilateral arm weakness status post extubation Comparison studies: None Technique: Axial images were obtained from the skull base to the vertex. Coronal and sagittal images reconstructed from the axial data. Dose modulation, iterative reconstruction, and/or weight based adjustment of the mA/kV was utilized to reduce the radiation dose to as low as reasonably achievable. Radiation dose: Total DLP: 1842 mGy*cm. Estimated effective dose: DLP x 0.015 Intravenous contrast: None Findings: Scalp: No abnormalities. Bones: No fractures, blastic or lytic lesions. Brain sulci: Appropriate for age. Ventricles: Normal in size and configuration. No hydrocephalus. Extra-axial spaces: No masses, no fluid collection. Parenchyma: No abnormal densities. No masses, acute hemorrhage, acute or chronic vascular insults. Sellar/suprasellar region: No abnormalities. Craniocervical junction: Patent foramen magnum. No Chiari one malformation. IMPRESSION: No acute intracranial abnormalities. Signed by: Dr. Heri Layton M.D. on 03/23/2018 7:06 PM
[2018-03-23] MEDS: METOPROLOL TARTRATE 25 MG TAB PO SCH (21:31)
[2018-03-23] MEDS: SIMVASTATIN 20 MG TAB PO SCH (21:32)
[2018-03-23] MEDS: GABAPENTIN 300 MG CAP PO SCH (21:32)
[2018-03-24] VITALS (24 sets, daily range): BP systolic 105–125; BP diastolic 50–91
[2018-03-24] MEDS: ALBUTEROL SULF 0.083% NEB SOLN 3 ML NEB NEB SCH ×5 (03:30→19:00)
[2018-03-24] MEDS: METHYLPREDNISOLONE SOD SUCC 40 MG/ML VIAL IV SCH ×2 (04:42→18:10)
[2018-03-24] MEDS: METRONIDAZOLE 500MG/NS 100ML 100 ML IV SCH (05:45)
[2018-03-24] MEDS: PIPER-TAZ 3.375 GM 50 ML IV SCH ×2 (05:45→14:24)
[2018-03-24] MEDS: LEVOTHYROXINE SODIUM 75 MCG TAB PO SCH (06:00)
[2018-03-24] MEDS ORDERED: LEVOTHYROXINE SODIUM 75 MCG TAB PO SCH ×2 (06:00→09:00)
[2018-03-24] MEDS: IPRATROPIUM BROMIDE 0.02% 2.5 ML NEB NEB SCH ×3 (07:30→19:00)
[2018-03-24] MEDS: BUDESONIDE 0.5MG/2 ML NEB INH SCH ×2 (07:30→19:15)
[2018-03-24] MEDS: ONDANSETRON HCL INJ 2 MG/ML VIAL IV PRN (08:57)
[2018-03-24] MEDS: METOPROLOL TARTRATE 25 MG TAB PO SCH ×2 (08:57→18:10)
[2018-03-24] MEDS: AMITRIPTYLINE HCL 25 MG TAB PO SCH (08:57)
[2018-03-24] MEDS: GABAPENTIN 300 MG CAP PO SCH (08:57)
[2018-03-24] MEDS ORDERED: AMITRIPTYLINE HCL 25 MG TAB PO SCH ×3 (09:00)
[2018-03-24] MEDS: VANCOMYCIN HCL 1.25 GM in SODIUM CHLORIDE 0.9% 250ML 250 ML IV SCH (10:39)
[2018-03-24] MEDS ORDERED: FUROSEMIDE INJ 10 MG/ML 4 ML VIAL IV NR (11:00)
[2018-03-24] MEDS ORDERED: FUROSEMIDE INJ 10 MG/ML 2 ML VIAL ONE (11:09)
[2018-03-24] MEDS: LEVOFLOXACIN 500MG/D5W 100ML 100 ML IV SCH (11:19)
[2018-03-24 11:48] LABS: ANION GAP 15.2 mmol/L (8-16); BLOOD UREA NITROGEN 25 mg/dL (7-26); BUN/CREATININE RATIO 34 (6-25); CALCIUM 8.7 mg/dL (8.4-10.2); CARBON DIOXIDE 26 mmol/L (22-29); CHLORIDE 100 mmol/L (98-107); CREATININE, SERUM 0.74 mg/dL (0.57-1.11); EST GLOMERULAR FILTRATION RATE > 60 ML/MIN (60-); GLUCOSE 121 mg/dL (74-118); POTASSIUM 4.2 mmol/L (3.5-5.1); SODIUM 137 mmol/L (136-145)
[2018-03-24] MEDS ORDERED: SIMVASTATIN 20 MG TAB PO SCH (17:00)
[2018-03-24] MEDS: ENOXAPARIN SOD INJ 40 MG/0.4 ML SYR SC SCH (18:11)
[2018-03-24] MEDS: SIMVASTATIN 20 MG TAB PO SCH (21:36)
[2018-03-25] VITALS (13 sets, daily range): BP systolic 102–122; BP diastolic 58–84
[2018-03-25] MEDS: ALBUTEROL SULF 0.083% NEB SOLN 3 ML NEB NEB SCH ×7 (04:05→22:30)
[2018-03-25 04:52] LABS: BASOPHILS # (AUTO) 0.1 (0.0-0.1); BASOPHILS % 0.4 % (0.0-1.0); EOSINOPHILS # (AUTO) 0.1 (0.0-0.4); EOSINOPHILS % 0.8 % (0.0-6.0); HEMATOCRIT 44.5 % (34.2-44.1); HEMOGLOBIN 14.6 g/dL (12.0-16.0); LYMPHOCYTES # (AUTO) 4.9 (1.0-3.2); LYMPHOCYTES % 31.8 % (18.0-39.1); MEAN CORPUSCULAR HGB CONC 32.8 g/dL (31-35); MEAN CORPUSCULAR VOLUME 91.4 fL (81-99); MONOCYTES # (AUTO) 1.4 (0.2-0.8); MONOCYTES % 9.4 % (4.4-11.3); NEUTROPHILS # (AUTO) 8.7 (2.1-6.9); NEUTROPHILS % 56.2 % (38.7-80.0); PLATELET COUNT 185 x10e3/uL (140-360); RED BLOOD COUNT 4.87 x10e6/uL (3.6-5.1); RED CELL DISTRIBUTION WIDTH 13.4 % (11.7-14.4)
[2018-03-25 05:10] LABS: BLOOD UREA NITROGEN 30 mg/dL (7-26); BUN/CREATININE RATIO 38 (6-25); CALCIUM 8.7 mg/dL (8.4-10.2); CARBON DIOXIDE 26 mmol/L (22-29); CHLORIDE 100 mmol/L (98-107); CREATININE, SERUM 0.78 mg/dL (0.57-1.11); EST GLOMERULAR FILTRATION RATE > 60 ML/MIN (60-); GLUCOSE 95 mg/dL (74-118); SODIUM 137 mmol/L (136-145)
[2018-03-25] MEDS: LEVOTHYROXINE SODIUM 75 MCG TAB PO SCH (06:32)
[2018-03-25] MEDS: BUDESONIDE 0.5MG/2 ML NEB INH SCH ×2 (07:00→22:15)
[2018-03-25] MEDS: IPRATROPIUM BROMIDE 0.02% 2.5 ML NEB NEB SCH ×4 (07:00→19:15)
--- NOTE | 2018-03-25 07:46 | Diagnostic Imaging Report ---
CHEST SINGLE (PORTABLE), 03/25/2018 5:00 AM Technique: CHEST SINGLE (PORTABLE) Comparison: Previous day Clinical history: Pneumonia Findings: See Impression. Contrast/high density noted over the left upper quadrant. Impression: 1. Lines/Tubes: Removal left IJ CVC to the cavoatrial junction. 2. Stable cardiac silhouette. 3. Stable mild bibasilar vascular crowding/opacity. Signed by: Dr Jackie Villegas MD on 03/25/2018 6:35 AM
[2018-03-25] MEDS: METHYLPREDNISOLONE SOD SUCC 40 MG/ML VIAL IV SCH ×2 (08:15→16:36)
[2018-03-25] MEDS: AMITRIPTYLINE HCL 25 MG TAB PO SCH (08:15)
[2018-03-25] MEDS: METOPROLOL TARTRATE 25 MG TAB PO SCH ×2 (08:16→16:36)
[2018-03-25] MEDS: LEVOFLOXACIN 500MG/D5W 100ML 100 ML IV SCH (11:00)
[2018-03-25] MEDS: SIMVASTATIN 20 MG TAB PO SCH (20:42)
[2018-03-26] MEDS: IPRATROPIUM BROMIDE 0.02% 2.5 ML NEB NEB SCH ×4 (01:00→19:40)
[2018-03-26] MEDS: ALBUTEROL SULF 0.083% NEB SOLN 3 ML NEB NEB SCH ×6 (03:40→23:00)
[2018-03-26 04:00] VITALS: BP 122/57
[2018-03-26] MEDS: LEVOTHYROXINE SODIUM 75 MCG TAB PO SCH (05:40)
[2018-03-26] MEDS: BUDESONIDE 0.5MG/2 ML NEB INH SCH ×2 (08:00→19:40)
[2018-03-26 08:01] VITALS: BP 102/54
[2018-03-26] MEDS: METOPROLOL TARTRATE 25 MG TAB PO SCH ×2 (09:10→21:12)
[2018-03-26] MEDS: AMITRIPTYLINE HCL 25 MG TAB PO SCH (09:10)
[2018-03-26] MEDS: METHYLPREDNISOLONE SOD SUCC 40 MG/ML VIAL IV SCH (09:10)
[2018-03-26 09:28] VITALS: BP 102/54
[2018-03-26] MEDS: LEVOFLOXACIN 500MG/D5W 100ML 100 ML IV SCH ×2 (11:00→16:57)
[2018-03-26] MEDS ORDERED: SODIUM CHLORIDE 0.9% 250ML 250 ML ONE (12:57)
[2018-03-26 17:08] VITALS: BP 114/69
[2018-03-26 20:00] VITALS: BP 136/63
[2018-03-26] MEDS ORDERED: AMITRIPTYLINE HCL 25 MG TAB PO SCH (21:00)
[2018-03-26] MEDS: SIMVASTATIN 20 MG TAB PO SCH (21:12)
[2018-03-26 22:11] VITALS: BP 136/63
[2018-03-27] VITALS: BP 107/55
[2018-03-27] MEDS: IPRATROPIUM BROMIDE 0.02% 2.5 ML NEB NEB SCH ×3 (00:38→15:15)
[2018-03-27] MEDS: ALBUTEROL SULF 0.083% NEB SOLN 3 ML NEB NEB SCH ×4 (02:47→15:15)
[2018-03-27 04:00] VITALS: BP 107/59
[2018-03-27] MEDS: LEVOTHYROXINE SODIUM 75 MCG TAB PO SCH (05:19)
[2018-03-27 06:46] LABS: BASOPHILS % 0.2 % (0.0-1.0); EOSINOPHILS # (AUTO) 0.2 (0.0-0.4); EOSINOPHILS % 1.1 % (0.0-6.0); HEMATOCRIT 41.6 % (34.2-44.1); HEMOGLOBIN 13.7 g/dL (12.0-16.0); LYMPHOCYTES % 30.6 % (18.0-39.1); MEAN CORPUSCULAR HEMOGLOBIN 29.8 pg (28-32); MEAN CORPUSCULAR HGB CONC 32.9 g/dL (31-35); MEAN CORPUSCULAR VOLUME 90.6 fL (81-99); MONOCYTES % 7.5 % (4.4-11.3); NEUTROPHILS # (AUTO) 7.8 (2.1-6.9); NEUTROPHILS % 59.5 % (38.7-80.0); PLATELET COUNT 172 x10e3/uL (140-360); RED BLOOD COUNT 4.59 x10e6/uL (3.6-5.1); RED CELL DISTRIBUTION WIDTH 13.2 % (11.7-14.4)
[2018-03-27] MEDS: BUDESONIDE 0.5MG/2 ML NEB INH SCH (07:00)
[2018-03-27 07:03] LABS: ANION GAP 11.6 mmol/L (8-16); BLOOD UREA NITROGEN 21 mg/dL (7-26); BUN/CREATININE RATIO 27 (6-25); CALCIUM 8.7 mg/dL (8.4-10.2); CARBON DIOXIDE 28 mmol/L (22-29); CHLORIDE 102 mmol/L (98-107); CREATININE, SERUM 0.78 mg/dL (0.57-1.11); EST GLOMERULAR FILTRATION RATE > 60 ML/MIN (60-); GLUCOSE 90 mg/dL (74-118); POTASSIUM 3.6 mmol/L (3.5-5.1); SODIUM 138 mmol/L (136-145)
[2018-03-27 08:41] VITALS: BP 114/58
[2018-03-27] MEDS ORDERED: AMITRIPTYLINE HCL 25 MG TAB PO SCH ×2 (09:00)
[2018-03-27] MEDS ORDERED: PREDNISONE 20 MG TAB PO SCH (09:00)
[2018-03-27] MEDS: METOPROLOL TARTRATE 25 MG TAB PO SCH (09:52)
[2018-03-27 10:00] VITALS: BP 114/58
[2018-03-27] MEDS: LEVOFLOXACIN 500MG/D5W 100ML 100 ML IV SCH (11:50)
[2018-03-27 13:46] VITALS: BP 116/56
--- NOTE | 2018-03-27 16:10 | Diagnostic Imaging Report ---
EXAM: Modified barium swallow INDICATION: Dysphagia COMPARISON: None FINDINGS This examination was conducted in conjunction with speech pathologist. Patient was given, by mouth, liquids and solids of various consistencies. Examination showed no premature spillage to the lingula or piriform sinuses. No aspiration or penetration was noted. No vallecular, pyriform sinus or pharyngeal residue was noted. Fluoro time: 01:27 minutes IMPRESSION: <Functional swallow. No evidence of aspiration. Please see speech pathology report for detailed description and recommendations.> Signed by: Dr. Arsen Johnson M.D. on 03/27/2018 4:07 PM
== END 2018-03-27 15:58 | disposition home or self-care (01) | DRG 207 ==
LOC: ER 12:36 → ERHOLD 13:54 → ICU 17:28 → MED/SURG 03-25 13:11
PROVIDERS: ADMIT Family Medicine; ATTEND Family Medicine
PROC: 5A1955Z Respiratory Ventilation, Greater than 96 Consecutive Hours (ICD-10-PCS; principal; 2018-03-17)
PROC: 0BH17EZ Insertion of Endotracheal Airway into Trachea, Via Natural or Artificial Opening (ICD-10-PCS; 2018-03-17)
PROC: 02HV33Z Insertion of Infusion Device into Superior Vena Cava, Percutaneous Approach (ICD-10-PCS; 2018-03-17)
PROC: 0BJ08ZZ Inspection of Tracheobronchial Tree, Via Natural or Artificial Opening Endoscopic (ICD-10-PCS; 2018-03-17)
DX: J96.01 Acute respiratory failure with hypoxia (principal); J15.8 Pneumonia due to other specified bacteria; J98.19 Other pulmonary collapse; J45.901 Unspecified asthma with (acute) exacerbation; I95.9 Hypotension, unspecified; J96.02 Acute respiratory failure with hypercapnia; E03.9 Hypothyroidism, unspecified
CPT/HCPCS: 31500; 36415; 36600; 51700; 70450; 71045; 71260; 74230; 80048; 80053; 80202; 81001; 82550; 82553; 82805; 82948; 83605; 83735; 83880; 84443; 84484; 85025; 85610; 85730; 87040; 87070; 87086; 87186; 87205; 87493; 93005; 93306; 94002; 94003; 94640; 97139; 99285; J0330; J0456; J0692; J1100; J1644; J1650; J1940; J1956; J2250; J2405; J2543; J2920; J3370; J7030; J7040; J7050; Q9967